=== PATIENT | male | born 1945 | race Caucasian/White ===

== ENCOUNTER 2022-08-30 22:48 | Inpatient (IN) | payer MEDICARE ==
[~2022-08-30] VITALS: Ht 182.9 cm; Wt 106.6 kg
[2022-08-30 23:15] LABS: *BILIRUBIN,URIN NEGATIVE (NEGATIVE); *BLOOD, URINE NEGATIVE (NEGATIVE); *CLARITY,URINE CLEAR (CLEAR); *COLOR,URINE YELLOW (YELLOW); *KETONES,URINE NEGATIVE (NEGATIVE); *UROBILINOGEN,URINE 0.2 E.U./dl (NORMAL); LEUKOCYTE ESTERASE ,URINE NEGATIVE (NEGATIVE); NITRITE, URINE NEGATIVE (NEGATIVE); PH,URINE 5.5 (5.0-8.0); UGLUCOSE NEGATIVE (NEGATIVE)
[2022-08-30 23:25] LABS: *AMPHETAMINE, URINE NEGATIVE (NEGATIVE); *CANNABINOID, URINE NEGATIVE (NEGATIVE); *COCCAINE, URINE NEGATIVE (NEGATIVE); *PHENCYCLIDINE SCREEN,URINE NEGATIVE (NEGATIVE)
[2022-08-30] MEDS ORDERED: TDAP DIPH,PERTUSS,TET VAC/PF 0.5 ML DISP.SYRIN IM ONE ×2 (23:45)
[2022-08-31] MEDS ORDERED: MAG HYDROX/AL HYDROX/SIMETH 30 ML LIQUID UDC PO PRN (00:30)
[2022-08-31] MEDS ORDERED: MAGNESIUM HYDROXIDE 30 ML LIQUID UDC PO PRN (00:30)
[2022-08-31] MEDS ORDERED: BLOOD SUGAR DIAGNOSTIC 1 EACH STRIP VI ONE (00:30)
[2022-08-31 00:45] VITALS: BP 164/84
[2022-08-31] MEDS: TEMAZEPAM 7.5 MG CAPSULE PO PRN ×2 (01:14→21:12)
[2022-08-31] MEDS ORDERED: AMLO-212 PO ×2 (02:43→17:26)
[2022-08-31] MEDS ORDERED: ASPI81TA31 PO (02:43)
[2022-08-31] MEDS ORDERED: METF-440 PO (02:43)
[2022-08-31] MEDS ORDERED: BUPR200T31 PO (02:43)
[2022-08-31] MEDS ORDERED: CLOP75TA15 PO (02:43)
[2022-08-31] MEDS ORDERED: ATOR80TA PO (02:43)
[2022-08-31] MEDS ORDERED: METO-356 PO (02:43)
[2022-08-31] MEDS ORDERED: EZET10TA15 PO (02:43)
[2022-08-31] MEDS ORDERED: SIME80TA15 PO (02:43)
[2022-08-31] MEDS ORDERED: TRAZ-182 PO (02:43)
[2022-08-31] MEDS ORDERED: FAMO10TA41 PO (02:43)
[2022-08-31] MEDS ORDERED: SAXA5TAB PO (02:43)
[2022-08-31 07:48] VITALS: BP 168/81
[2022-08-31] MEDS ORDERED: FAMO20TA8 PO (16:50)
[2022-08-31] MEDS ORDERED: HYDR50TA68 PO (16:50)
[2022-08-31] MEDS ORDERED: GLIP10TA11 MT (16:50)
[2022-08-31 16:51] VITALS: BP 165/71
[2022-08-31] MEDS ORDERED: LOSA100T31 PO (16:54)
[2022-08-31] MEDS: SERTRALINE HCL 50 MG TABLET PO SCH (16:55)
[2022-08-31] MEDS ORDERED: ICOS1CAP PO (16:59)
[2022-08-31] MEDS ORDERED: MEMA10TA PO (16:59)
[2022-08-31] MEDS: LORAZEPAM 1 MG TABLET PO PRN (18:19)
[2022-08-31] MEDS ORDERED: hydrALAZINE HCL 25 MG TABLET PO PRN (19:30)
[2022-08-31] MEDS ORDERED: SIMETHICONE 80 MG TAB.CHEW PO PRN (19:30)
[2022-08-31] MEDS: AMLODIPINE 5 MG TABLET PO SCH (19:39)
[2022-08-31 19:58] VITALS: BP 173/77
[2022-08-31] MEDS: ATORVASTATIN 40 MG TABLET PO SCH (20:20)
[2022-08-31 20:54] VITALS: BP 158/71
[2022-09-01] MEDS: LORAZEPAM 1 MG TABLET PO PRN ×2 (01:38→23:49)
[2022-09-01 08:14] VITALS: BP 159/73
[2022-09-01] MEDS: AMLODIPINE 5 MG TABLET PO SCH (08:29)
[2022-09-01] MEDS: LINAGLIPTIN 5 MG TABLET PO SCH (08:29)
[2022-09-01] MEDS: METFORMIN HCL 500 MG TABLET PO SCH ×2 (08:29→16:11)
[2022-09-01] MEDS: ASPIRIN 81 MG TAB.CHEW PO SCH (08:29)
[2022-09-01] MEDS: FAMOTIDINE 20 MG TABLET PO SCH (08:29)
[2022-09-01] MEDS: CLOPIDOGREL 75 MG TABLET PO SCH (08:29)
[2022-09-01] MEDS: METOPROLOL SUCCINATE XL 25 MG TAB.SR.24H PO SCH (08:29)
[2022-09-01] MEDS: EZETIMIBE 10 MG TABLET PO SCH (08:29)
[2022-09-01] MEDS: SERTRALINE HCL 50 MG TABLET PO SCH (08:30)
[2022-09-01] MEDS ORDERED: SAXAGLIPTIN HYDROCHLORIDE 2.5 MG PO SCH (09:00)
[2022-09-01 16:38] VITALS: BP 154/76
[2022-09-01 19:56] VITALS: BP 160/69
[2022-09-01] MEDS: ATORVASTATIN 40 MG TABLET PO SCH (20:24)
[2022-09-01] MEDS: TEMAZEPAM 7.5 MG CAPSULE PO PRN (21:06)
[2022-09-02 08:14] VITALS: BP 124/73
[2022-09-02] MEDS: CLOPIDOGREL 75 MG TABLET PO SCH (08:26)
[2022-09-02] MEDS: METFORMIN HCL 500 MG TABLET PO SCH ×2 (08:26→16:56)
[2022-09-02] MEDS: EZETIMIBE 10 MG TABLET PO SCH (08:26)
[2022-09-02] MEDS: ASPIRIN 81 MG TAB.CHEW PO SCH (08:27)
[2022-09-02] MEDS: AMLODIPINE 5 MG TABLET PO SCH (08:27)
[2022-09-02] MEDS: LINAGLIPTIN 5 MG TABLET PO SCH (08:27)
[2022-09-02] MEDS: SERTRALINE HCL 50 MG TABLET PO SCH (08:27)
[2022-09-02] MEDS: FAMOTIDINE 20 MG TABLET PO SCH (08:27)
[2022-09-02] MEDS: METOPROLOL SUCCINATE XL 25 MG TAB.SR.24H PO SCH (08:27)
[2022-09-02] MEDS: PROTEIN SUPPLEMENT (PROSTAT) 30 ML LIQUID PO SCH ×2 (08:28→16:56)
[2022-09-02 16:05] VITALS: BP 145/67
[2022-09-02 19:50] VITALS: BP 147/70
[2022-09-02] MEDS: ATORVASTATIN 40 MG TABLET PO SCH (21:05)
[2022-09-02] MEDS: TEMAZEPAM 7.5 MG CAPSULE PO PRN (21:05)
[2022-09-02] MEDS ORDERED: DEXTROSE 50% 50 ML DISP.SYRIN IV PRN (21:30)
[2022-09-03] MEDS: ACETAMINOPHEN 325 MG TABLET PO PRN (01:48)
[2022-09-03] MEDS: LORAZEPAM 1 MG TABLET PO PRN (01:49)
[2022-09-03] MEDS: BLOOD SUGAR DIAGNOSTIC 1 EACH STRIP VI SCH ×4 (05:58→21:05)
[2022-09-03 07:26] LABS: HEMATOCRIT 34.4 % (36.7-47.1); MEAN CORPUSCULAR HEMOGLOBIN 32.7 uug (23.8-33.4); MEAN CORPUSCULAR VOLUME 94.6 fL (73.0-96.2); PLATELET COUNT (AUTO) 144 K/uL (152-348)
[2022-09-03 08:00] VITALS: BP 153/65
[2022-09-03 08:08] LABS: ALANINE AMINOTRANSFERASE 69 U/L (16-63); ALKALINE PHOSPHATASE 98 U/L (50-136); ASPARTATE AMINOTRANSFERASE 35 U/L (15-37); CARBON DIOXIDE 25 mmol/L (21-32); CHLORIDE 103 mmol/L (98-107); CREATININE 1.5 mg/dL (0.6-1.3); GLUCOSE 155 mg/dL (74-106); MAGNESIUM 1.9 mg/dL (1.8-2.4); PHOSPHOROUS 3.7 mg/dL (2.5-4.9); TOTAL PROTEIN, SERUM 6.7 g/dL (6.4-8.2); UREA NITROGEN, BLOOD 28 mg/dL (7-18)
[2022-09-03] MEDS: LINAGLIPTIN 5 MG TABLET PO SCH (08:21)
[2022-09-03] MEDS: AMLODIPINE 5 MG TABLET PO SCH (08:21)
[2022-09-03] MEDS: FAMOTIDINE 20 MG TABLET PO SCH (08:21)
[2022-09-03] MEDS: SERTRALINE HCL 50 MG TABLET PO SCH ×2 (08:21→16:09)
[2022-09-03] MEDS: ASPIRIN EC 81 MG TABLET.DR PO SCH (08:21)
[2022-09-03] MEDS: EZETIMIBE 10 MG TABLET PO SCH (08:21)
[2022-09-03] MEDS: CLOPIDOGREL 75 MG TABLET PO SCH (08:21)
[2022-09-03] MEDS: PROTEIN SUPPLEMENT (PROSTAT) 30 ML LIQUID PO SCH ×2 (08:22→16:09)
[2022-09-03 08:32] LABS: THYROID STIMULATING HORMONE 1.185 mIU/mL (0.358-3.740)
[2022-09-03] MEDS: METFORMIN HCL 500 MG TABLET PO SCH (08:34)
[2022-09-03] MEDS: METOPROLOL SUCCINATE XL 25 MG TAB.SR.24H PO SCH (08:35)
[2022-09-03] MEDS: INSULIN REGULAR, HUMAN 300 UNIT/3 ML VIAL SQ PRN ×3 (08:41→21:11)
[2022-09-03 16:00] VITALS: BP 149/68
[2022-09-03 19:55] VITALS: BP 125/71
[2022-09-03] MEDS: ATORVASTATIN 40 MG TABLET PO SCH (21:05)
[2022-09-04] MEDS: BLOOD SUGAR DIAGNOSTIC 1 EACH STRIP VI SCH ×4 (06:59→20:49)
[2022-09-04 07:03] LABS: HEMATOCRIT 35.3 % (36.7-47.1); MEAN CORPUSCULAR HEMOGLOBIN 32.8 uug (23.8-33.4); MEAN CORPUSCULAR VOLUME 94.8 fL (73.0-96.2); PLATELET COUNT (AUTO) 145 K/uL (152-348)
[2022-09-04 07:16] LABS: CARBON DIOXIDE 27 mmol/L (21-32); CHLORIDE 103 mmol/L (98-107); CREATININE 1.6 mg/dL (0.6-1.3); GLUCOSE 174 mg/dL (74-106); MAGNESIUM 1.7 mg/dL (1.8-2.4); PHOSPHOROUS 3.9 mg/dL (2.5-4.9); POTASSIUM 3.9 mmol/L (3.5-5.1); UREA NITROGEN, BLOOD 31 mg/dL (7-18)
[2022-09-04 07:41] VITALS: BP 147/71
[2022-09-04] MEDS: EZETIMIBE 10 MG TABLET PO SCH (08:29)
[2022-09-04] MEDS: LINAGLIPTIN 5 MG TABLET PO SCH (08:29)
[2022-09-04] MEDS: FAMOTIDINE 20 MG TABLET PO SCH (08:29)
[2022-09-04] MEDS: CLOPIDOGREL 75 MG TABLET PO SCH (08:29)
[2022-09-04] MEDS: ASPIRIN EC 81 MG TABLET.DR PO SCH (08:29)
[2022-09-04] MEDS: AMLODIPINE 5 MG TABLET PO SCH (08:30)
[2022-09-04] MEDS: SERTRALINE HCL 50 MG TABLET PO SCH ×2 (08:31→16:39)
[2022-09-04] MEDS: INSULIN REGULAR, HUMAN 300 UNIT/3 ML VIAL SQ PRN ×5 (08:38→20:54)
[2022-09-04] MEDS: METOPROLOL SUCCINATE XL 25 MG TAB.SR.24H PO SCH (08:41)
[2022-09-04] MEDS: PROTEIN SUPPLEMENT (PROSTAT) 30 ML LIQUID PO SCH ×2 (09:00→17:00)
[2022-09-04] MEDS ORDERED: MAGNESIUM OXIDE 400 MG TABLET PO ONE (10:30)
[2022-09-04 15:10] VITALS: BP 129/63
[2022-09-04 20:00] VITALS: BP 150/68
[2022-09-04] MEDS: ATORVASTATIN 40 MG TABLET PO SCH (21:02)
[2022-09-05] MEDS: BLOOD SUGAR DIAGNOSTIC 1 EACH STRIP VI SCH ×4 (05:42→21:03)
[2022-09-05 06:59] LABS: HEMATOCRIT 36.7 % (36.7-47.1); MEAN CORPUSCULAR HEMOGLOBIN 32.9 uug (23.8-33.4); MEAN CORPUSCULAR VOLUME 95.2 fL (73.0-96.2); PLATELET COUNT (AUTO) 149 K/uL (152-348)
[2022-09-05 07:32] LABS: ALANINE AMINOTRANSFERASE 70 U/L (16-63); ALKALINE PHOSPHATASE 111 U/L (50-136); ASPARTATE AMINOTRANSFERASE 26 U/L (15-37); BILIRUBIN,TOTAL 1.1 mg/dL (0.2-1.0); CARBON DIOXIDE 27 mmol/L (21-32); CHLORIDE 102 mmol/L (98-107); CREATINE KINASE, TOTAL 140 U/L (39-308); CREATININE 1.5 mg/dL (0.6-1.3); GLUCOSE 157 mg/dL (74-106); MAGNESIUM 1.9 mg/dL (1.8-2.4); PHOSPHOROUS 4.2 mg/dL (2.5-4.9); TOTAL PROTEIN, SERUM 7.3 g/dL (6.4-8.2); UREA NITROGEN, BLOOD 30 mg/dL (7-18)
[2022-09-05] MEDS ORDERED: AMLODIPINE 5 MG TABLET PO SCH (09:00)
[2022-09-05 09:11] VITALS: BP 148/68
[2022-09-05] MEDS: EZETIMIBE 10 MG TABLET PO SCH (09:50)
[2022-09-05] MEDS: FAMOTIDINE 20 MG TABLET PO SCH (09:50)
[2022-09-05] MEDS: LINAGLIPTIN 5 MG TABLET PO SCH (09:50)
[2022-09-05] MEDS: AMLODIPINE 10 MG TABLET PO SCH (09:51)
[2022-09-05] MEDS: ASPIRIN EC 81 MG TABLET.DR PO SCH (09:51)
[2022-09-05] MEDS: CLOPIDOGREL 75 MG TABLET PO SCH (09:51)
[2022-09-05] MEDS: SERTRALINE HCL 50 MG TABLET PO SCH ×2 (09:51→18:09)
[2022-09-05] MEDS: PROTEIN SUPPLEMENT (PROSTAT) 30 ML LIQUID PO SCH ×2 (09:53→18:03)
[2022-09-05] MEDS: METOPROLOL SUCCINATE XL 25 MG TAB.SR.24H PO SCH (09:56)
[2022-09-05] MEDS: INSULIN REGULAR, HUMAN 300 UNIT/3 ML VIAL SQ PRN ×3 (12:31→21:19)
[2022-09-05 15:33] VITALS: BP 176/51
[2022-09-05 20:38] VITALS: BP 140/75
[2022-09-05] MEDS: ATORVASTATIN 40 MG TABLET PO SCH (21:02)
[2022-09-05] MEDS: TEMAZEPAM 7.5 MG CAPSULE PO PRN (23:23)
[2022-09-06] MEDS: BLOOD SUGAR DIAGNOSTIC 1 EACH STRIP VI SCH ×4 (06:21→21:20)
[2022-09-06 08:00] VITALS: BP 138/73
[2022-09-06] MEDS: SERTRALINE HCL 50 MG TABLET PO SCH ×2 (08:15→17:15)
[2022-09-06] MEDS: EZETIMIBE 10 MG TABLET PO SCH (08:15)
[2022-09-06] MEDS: ASPIRIN EC 81 MG TABLET.DR PO SCH (08:15)
[2022-09-06] MEDS: FAMOTIDINE 20 MG TABLET PO SCH (08:15)
[2022-09-06] MEDS: CLOPIDOGREL 75 MG TABLET PO SCH (08:17)
[2022-09-06] MEDS: AMLODIPINE 10 MG TABLET PO SCH (08:17)
[2022-09-06] MEDS: METOPROLOL SUCCINATE XL 25 MG TAB.SR.24H PO SCH (08:18)
[2022-09-06] MEDS: PROTEIN SUPPLEMENT (PROSTAT) 30 ML LIQUID PO SCH ×2 (08:20→17:15)
[2022-09-06] MEDS: LINAGLIPTIN 5 MG TABLET PO SCH (08:20)
[2022-09-06] MEDS: INSULIN REGULAR, HUMAN 300 UNIT/3 ML VIAL SQ PRN ×3 (12:32→21:29)
[2022-09-06] MEDS: LORAZEPAM 1 MG TABLET PO PRN (12:37)
[2022-09-06 15:15] VITALS: BP 140/63
[2022-09-06 20:24] VITALS: BP 139/66
[2022-09-06] MEDS: TEMAZEPAM 7.5 MG CAPSULE PO PRN (21:20)
[2022-09-06] MEDS: ATORVASTATIN 40 MG TABLET PO SCH (21:20)
[2022-09-07] MEDS: BLOOD SUGAR DIAGNOSTIC 1 EACH STRIP VI SCH ×5 (07:30→20:05)
[2022-09-07 07:46] VITALS: BP 146/63
[2022-09-07] MEDS: INSULIN REGULAR, HUMAN 300 UNIT/3 ML VIAL SQ PRN ×4 (08:51→20:06)
[2022-09-07] MEDS: PROTEIN SUPPLEMENT (PROSTAT) 30 ML LIQUID PO SCH ×2 (09:00→17:04)
[2022-09-07] MEDS: SERTRALINE HCL 50 MG TABLET PO SCH ×2 (09:03→17:03)
[2022-09-07] MEDS: FAMOTIDINE 20 MG TABLET PO SCH (09:03)
[2022-09-07] MEDS: EZETIMIBE 10 MG TABLET PO SCH (09:03)
[2022-09-07] MEDS: ASPIRIN EC 81 MG TABLET.DR PO SCH (09:03)
[2022-09-07] MEDS: AMLODIPINE 10 MG TABLET PO SCH (09:03)
[2022-09-07] MEDS: LINAGLIPTIN 5 MG TABLET PO SCH (09:04)
[2022-09-07] MEDS: CLOPIDOGREL 75 MG TABLET PO SCH (09:04)
[2022-09-07] MEDS: METOPROLOL SUCCINATE XL 25 MG TAB.SR.24H PO SCH (09:05)
[2022-09-07] MEDS: ACETAMINOPHEN 325 MG TABLET PO PRN (13:49)
[2022-09-07 16:35] VITALS: BP 140/60
[2022-09-07] MEDS: ATORVASTATIN 40 MG TABLET PO SCH (20:04)
[2022-09-07] MEDS: LORAZEPAM 1 MG TABLET PO PRN (20:30)
[2022-09-07 20:41] VITALS: BP 143/68
[2022-09-08] MEDS: BLOOD SUGAR DIAGNOSTIC 1 EACH STRIP VI SCH ×4 (06:32→20:29)
[2022-09-08] MEDS: INSULIN REGULAR, HUMAN 300 UNIT/3 ML VIAL SQ PRN ×4 (07:52→20:32)
[2022-09-08 08:16] VITALS: BP 145/71
[2022-09-08] MEDS: ASPIRIN EC 81 MG TABLET.DR PO SCH (08:36)
[2022-09-08] MEDS: LINAGLIPTIN 5 MG TABLET PO SCH (08:37)
[2022-09-08] MEDS: SERTRALINE HCL 50 MG TABLET PO SCH ×2 (08:37→16:59)
[2022-09-08] MEDS: CLOPIDOGREL 75 MG TABLET PO SCH (08:37)
[2022-09-08] MEDS: FAMOTIDINE 20 MG TABLET PO SCH (08:37)
[2022-09-08] MEDS: EZETIMIBE 10 MG TABLET PO SCH (08:37)
[2022-09-08] MEDS: METOPROLOL SUCCINATE XL 25 MG TAB.SR.24H PO SCH (08:38)
[2022-09-08] MEDS: AMLODIPINE 10 MG TABLET PO SCH (08:41)
[2022-09-08] MEDS: PROTEIN SUPPLEMENT (PROSTAT) 30 ML LIQUID PO SCH (08:41)
[2022-09-08 16:28] VITALS: BP 143/71
[2022-09-08 19:56] VITALS: BP 145/70
[2022-09-08] MEDS: ATORVASTATIN 40 MG TABLET PO SCH (20:29)
[2022-09-08] MEDS: TEMAZEPAM 7.5 MG CAPSULE PO PRN (20:29)
[2022-09-09 02:06] LABS: A/G RATIO 1.1 (0.7-1.7); ALBUMIN 3.4 g/dL (2.9-4.4); ALPHA-1-GLOBULIN 0.3 g/dL (0.0-0.4); BETA GLOBULIN 1.1 g/dL (0.7-1.3); GAMMA GLOBULIN 0.6 g/dL (0.4-1.8); M-SPIKE Not Observed g/dL (Not Observed)
[2022-09-09] MEDS: LORAZEPAM 1 MG TABLET PO PRN (04:48)
[2022-09-09] MEDS: BLOOD SUGAR DIAGNOSTIC 1 EACH STRIP VI SCH (06:42)
[2022-09-09 07:57] VITALS: BP 136/62
[2022-09-09] MEDS: LINAGLIPTIN 5 MG TABLET PO SCH (08:16)
[2022-09-09] MEDS: CLOPIDOGREL 75 MG TABLET PO SCH (08:16)
[2022-09-09] MEDS: ASPIRIN EC 81 MG TABLET.DR PO SCH (08:16)
[2022-09-09] MEDS: EZETIMIBE 10 MG TABLET PO SCH (08:16)
[2022-09-09] MEDS: FAMOTIDINE 20 MG TABLET PO SCH (08:16)
[2022-09-09 08:17] VITALS: BP 136/62
[2022-09-09] MEDS: SERTRALINE HCL 50 MG TABLET PO SCH (08:17)
[2022-09-09] MEDS: AMLODIPINE 10 MG TABLET PO SCH (08:17)
[2022-09-09] MEDS: METOPROLOL SUCCINATE XL 25 MG TAB.SR.24H PO SCH (08:17)
[2022-09-09] MEDS: INSULIN REGULAR, HUMAN 300 UNIT/3 ML VIAL SQ PRN (09:30)
== END 2022-09-09 11:00 | disposition home health service (06) | DRG 881 ==
LOC: ER 22:59 → GPS 08-31 00:10 → UNDOADMIN 08-31 00:10
PROVIDERS: ADMIT Psychiatry & Neurology Psychosomatic Medicine; ATTEND Internal Medicine
DX: F32.9 Major depressive disorder, single episode, unspecified (principal); N17.9 Acute kidney failure, unspecified; N18.9 Chronic kidney disease, unspecified; R45.851 Suicidal ideations; I69.354 Hemiplegia and hemiparesis following cerebral infarction affecting left non-dominant side; S50.312A Abrasion of left elbow, initial encounter; W22.8XXA Striking against or struck by other objects, initial encounter; Y92.239 Unspecified place in hospital as the place of occurrence of the external cause; E11.22 Type 2 diabetes mellitus with diabetic chronic kidney disease; I12.9 Hypertensive chronic kidney disease with stage 1 through stage 4 chronic kidney disease, or unspecified chronic kidney disease; F41.1 Generalized anxiety disorder; Z68.31 Body mass index [BMI] 31.0-31.9, adult; E66.01 Morbid (severe) obesity due to excess calories; M19.90 Unspecified osteoarthritis, unspecified site; E78.1 Pure hyperglyceridemia; Z74.09 Other reduced mobility; D63.1 Anemia in chronic kidney disease
CPT/HCPCS: 36415; 76770; 83735; 83970; 84100; 84155; 84165; 84443; 85025; 90715; J1815